=== PATIENT | female | born 1930 | race Two or more races ===

== ENCOUNTER 2019-01-27 16:04 | Emergency (ER) | payer MEDICARE ==
[~2019-01-27] VITALS: Ht 152.4 cm; Wt 68.0 kg
[2019-01-27 18:37] VITALS: BP 159/53
== END 2019-01-27 21:17 | disposition left against medical advice (07) ==
LOC: ER 16:04
DX: R05 Cough (principal); Z53.21 Procedure and treatment not carried out due to patient leaving prior to being seen by health care provider